=== PATIENT | male | born 1960 | race African-American/Black ===

== ENCOUNTER 2017-10-11 07:39 | Day surgery (SDC) | payer MEDICARE, OTHER ==
[2017-10-11 08:28] VITALS: RESP 16; TEMP 98.2
[2017-10-11] MEDS ORDERED: ERTAPENEM 1 GM in SODIUM CHLORIDE 0.9% 50 ML IVPB ONE (09:00)
[2017-10-11] MEDS ORDERED: LIDOCAINE 2% INJ 20 MG/ML SQ ONE (09:31)
--- NOTE | 2017-10-11 10:15 | IR ---
EXAMINATION TYPE: IR cvc insert >=5 years DATE OF EXAM: 10/11/2017 COMPARISON: NONE CLINICAL HISTORY: Urinary tract infection Needs long-term intravenous access for antibiotics. PROCEDURE: After informed consent, the skin overlying the left brachial vein was localized with ultrasound and n oted to be compressible and patent. An ultrasound image was obtained and submitted on the patient's chart. The overlying skin was prepped and draped and Lidocaine was used for local anesthesia. A ski n mare was made with a scalpel. Access was gained to the vein under ultrasound guidance with a 21 ga uge needle and a 0.018 inch wire was advanced. Access site was dilated with Peel-Away sheath and cat heter tailored to the appropriate length and advanced such that the distal tip is at the cavoatrial j unction. Spot image was obtained verifying placement. Catheter was fixed to the skin with suture an d a sterile dressing was placed following hemostasis. Catheter was aspirated and flushed with saline . Patient was discharged in stable condition without complication. Maximal barrier technique is util ized. Ultrasound image is documented on the chart. Ultrasound used with sterile technique. Fluoro time and fluoroscopic images submitted to document procedure: 0.4 minutes fluoroscopy time, 25 3 intraoperative C-arm images IMPRESSION: STATUS POST ULTRASOUND AND FLUOROSCOPIC GUIDED PICC LINE PLACEMENT, READY FOR USE. THIS PROCEDURE WAS PERFORMED BY THE UNDERSIGNED.
[2017-10-11 11:19] VITALS: BP 119/81; PULSE 68
== END 2017-10-11 10:58 | disposition home health service (06) ==
LOC: CATHCVL 07:39
PROVIDERS: ATTEND Radiology Diagnostic Radiology
DX: Z45.2 Encounter for adjustment and management of vascular access device (principal); N39.0 Urinary tract infection, site not specified; I13.10 Hypertensive heart and chronic kidney disease without heart failure, with stage 1 through stage 4 chronic kidney disease, or unspecified chronic kidney disease; N18.3 Chronic kidney disease, stage 3 (moderate); I48.91 Unspecified atrial fibrillation; E55.9 Vitamin D deficiency, unspecified; J45.909 Unspecified asthma, uncomplicated; F32.9 Major depressive disorder, single episode, unspecified; E34.3 Short stature due to endocrine disorder; K59.00 Constipation, unspecified; Q05.9 Spina bifida, unspecified; G82.21 Paraplegia, complete; G60.9 Hereditary and idiopathic neuropathy, unspecified; F41.8 Other specified anxiety disorders; Z66 Do not resuscitate; Z87.440 Personal history of urinary (tract) infections; Z88.0 Allergy status to penicillin; Z79.899 Other long term (current) drug therapy; Z82.49 Family history of ischemic heart disease and other diseases of the circulatory system
CPT/HCPCS: 36569; 76937; 77001; C1751; C1769; J2001; J1335

== ENCOUNTER 2017-10-23 12:46 | Emergency (ER) | payer MEDICARE, OTHER ==
[~2017-10-23 12:46] MED LIST: EPINEPHrine 10 ML SYRINGE (0.1 MG/ML) ONE; SODIUM BICARB 8.4% 50 ML SYR (1 MEQ/ML) ONE
[2017-10-23 13:18] LABS: Glucose,Whole Blood 67 mg/dL (75-99)
--- NOTE | 2017-10-23 14:35 | ED ---
CPR HPI - General Stated Complaint: UNRESPONSIVE Time Seen by Provider: 10/23/17 12:46 Source: EMS, RN notes reviewed, Caregiver Mode of arrival: EMS - History of Present Illness Initial Comments: This is a 56-year-old male with a history of porphyria some spina bifida hypertension and atrial fibrillation who apparently recently had a urinary tract infection was placed on antibiotics due to the lack of IV access had a PICC line in place. A repeat UA showed no evidence of any infection in his PICC line was removed around 10 AM this morning. He was on a city bus prior to arrival and became unresponsive. EMS was activated at about 12:21 PM upon arrival patient was found to be biliary responsive Narcan was given as the patient apparently had pinpoint pupils he was transported here in route he developed asystole and complete cardiopulmonary arrest. ACLS protocol was begun. Complaint: collapsed during rest Review of Systems ROS Statement: Those systems with pertinent positive or pertinent negative responses have been documented in the HPI. ROS Other: All systems not noted in ROS Statement are negative. 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 Unresponsive. CPR progress upon arrival. Limitations: altered mental status General appearance: other (Unresponsive) Head exam: Present: atraumatic Eye exam: Present: other (Pupils 6 and dilated bilaterally approximately 5 mm) ENT exam: Present: other (Oral airway was in place with [id number]) Neck exam: Present: normal inspection Respiratory exam: Present: decreased breath sounds (Blood present with ventilatory support.) Cardiovascular Exam: Present: other (Pulseless) GI/Abdominal exam: Present: other (Left nephrostomy tube present) Rectal exam: Present: deferred Extremities exam: Present: other (Bilaterally present and symmetric demonstrating the stigmata of dwarfism). Absent: normal capillary refill Back exam: Present: other (No evidence of any trauma the left nephrostomy tube is noted) Neurological exam: Present: other (Unresponsive) Psychiatric exam: Present: other (Unresponsive) Skin exam: Present: dry, normal color Course - Reevaluation(s) Reevaluation #1: 10/23/17 14:38 ACLS protocol was continued the patient did require oral tracheal and the patient for airway control as well as an interosseous IV the right lower extremity has no peripheral access was available. The Laura efforts were continued with chest compressions and medications patient went from asystole to a bradycardic PEA rhythm. Reevaluation #2: 10/23/17 14:39 At 1305 p.m. the efforts did appear to be futile. The code was ended the patient was pronounced at this time. Reevaluation #3: 10/23/17 14:39 I did discuss case with the medical technologist clinical's office the patient was released Dr. Maravilla's office was contacted and he will sign the certificate Reevaluation #4: 10/23/17 14:40 I did discuss the outcome with social workers and medical power of civil rights attorney was present the patient. He does not have any relatives that are known. Procedures - Intubation Time Out Performed: No Laryngoscope: Madsen Size: 3 ET Tube Size: 7.5 ET Tube Uncuffed: No Tube Secured Depth (cm): 22 Tube Secured Location: lips Tube Placement Confirmation: visualized tube passing through cords, equal breath sounds bilaterally, confirmation by capnometry Patient Tolerated Procedure: well Intubation Complications: none - IO Right Consent Obtained: emergent situation Time Out Performed: No IO Instrument Used to Penetrate the Cortex: battery powered IO drill Patient Tolerated Procedure: well Complications: none Medical Decision Making - Lab Data Lab Results 10/23/17 Range/Units 13:00 POC Glucose (mg/dL) 67 L (75-99) mg/dL POC Glu Cad Application Support Specialist ID Se Ortega Critical Care Time Critical Care Time: Yes Critical Care Time: 37 minutes of critical care time which includes the monitoring of the EMS run and discussed with paramedics history that was available CPR efforts did not including the intubation and interosseous IV placement. Discussion with multiple caregivers including the social workers and power of civil rights attorney. Discussed with the medical technologist clinical's office. Discussion regarding signing the certificate and documentation thereof. Disposition Clinical Impression: Sudden cardiac , Cardiac arrest with pulseless electrical activity Disposition: Referrals: Justus Castorena MD [Primary Care Provider] - 1-2 days Preliminary Cause of : Sudden cardiac
== END 2017-10-23 16:45 | disposition expired ==
LOC: MERGE 12:46 → EC 12:46
DX: I46.9 Cardiac arrest, cause unspecified (principal)
CPT/HCPCS: 31500; 36415; 92950; 99285